=== PATIENT | female | born 1990 | race American Indian/Alaskan Native ===

== ENCOUNTER 2019-11-29 19:11 | Emergency (ER) | payer SELFPAY ==
[2019-11-29 19:41] LABS: Basophils # (Auto) 0.1 K/mm3 (0.0-0.1); Basophils % (Auto) 0.6 % (0.0-1.8); Eosinophils # (Auto) 0.2 K/mm3 (0.0-0.4); Eosinophils % (Auto) 2.8 % (0.0-4.3); Hematocrit 31.8 % (30.3-42.9); Hemoglobin 10.7 gm/dl (10.1-14.3); Lymphocytes % (Auto) 35.3 % (13.4-35.0); Mean Corpuscular HGB Conc 34 % (30-34); Mean Corpuscular Volume 76 fl (79-97); Monocytes # (Auto) 0.5 K/mm3 (0.0-0.8); Monocytes % (Auto) 5.5 % (0.0-7.3); Platelet Count 225 K/mm3 (140-440)
--- NOTE | 2019-11-29 20:39 | Ultrasound Report ---
Limited OB Ultrasound HISTORY: abdominal pain. TECHNIQUE: Grayscale and color imaging performed. COMPARISON: None FINDINGS: Uterus measures 10.8 x 5.9 x 5.3 cm with an intrauterine cystic structure identified measur ing 1.8 cm in maximal dimension which could represent an EGA of 6 weeks and 5 days, but no pole or yolk sac is identified. Neither ovary is identified as exam. IMPRESSION: Intrauterine cystic structure as outlined above with no pole or yolk sac. This coul d represent an early gestational sac but correlate with beta hCG level and consider serial follow-up ultrasound. Signer Name: Greyson Ag MD Signed: 11/29/2019 8:34 PM Workstation Name: [id number]
[2019-11-29 21:32] LABS: Bacteria,Urine 1+ /HPF (Negative); Bilirubin,Urine NEG (Negative); Blood,Urine SM (Negative); Color,Urine Yellow (Yellow); Mucus,Urine FEW /HPF; Protein,Urine <15 mg/dL mg/dL (Negative)
[2019-11-29 21:36] VITALS: BP 106/59
--- NOTE | 2019-11-29 22:09 | Emergency Department Report ---
ED HPI - General Chief complaint: Abdominal Pain Stated complaint: /ABD PAIN Time Seen by Provider: 11/29/19 21:18 Source: patient Mode of arrival: Ambulatory Limitations: No Limitations - History of Present Illness Initial comments: 29-year-old female currently 5 weeks and 5 days with LMP October 19 presents to the hospital complaining of intermittent abdominal pain x1 week. Feels like a tightness in the left lower abdomen radiating across. Pain is moderate in intensity and worse with palpation. No alleviating factors. Patient states she has had decreased bowel movements. She also endorses occasional nausea without vomiting. She is not currently on vitamins. She has not initiated care. She denies dysuria or vaginal bleeding. This is her fourth and she has 3 living children - Related Data Allergies Allergy/AdvReac Type Severity Reaction Status Date / Time No Known Allergies Allergy Unverified 11/29/19 19:21 ED Review of Systems ROS: Stated complaint: /ABD PAIN Other details as noted in HPI Comment: All other systems reviewed and negative ED Past Medical Hx - Past Medical History Previous Medical History?: Yes Hx Asthma: Yes - Surgical History Past Surgical History?: Yes Additional Surgical History: X 3 - Social History Smoking Status: Never Smoker Substance Use Type: None ED Physical Exam - General Limitations: No Limitations - Other Other exam information: General: No acute distress Head: Atraumatic Eyes: normal appearance ENT: Moist mucous membranes Neck: Normal appearance, no midline tenderness Chest: Clear to auscultation bilaterally CV: Regular rate and rhythm Abdomen: Soft, normal bowel sounds, left lower quadrant tenderness, nondistended, no rebound or guarding Back: Normal inspection Extremity: Normal inspection, full range of motion Neuro: Alert O x 3, no facial asymmetry, speech clear, no gross motor sensory deficit Psych: Appropriate behavior Skin: No rash ED Course Vital Signs 11/29/19 11/29/19 19:17 21:35 Temperature 98.6 F 98.6 F Pulse Rate 91 H 70 Respiratory 18 18 Rate Blood Pressure 130/65 Blood Pressure 106/59 [Left] O2 Sat by Pulse 97 99 Oximetry ED Medical Decision Making - Lab Data Result diagrams: 11/29/19 19:22 Lab Results 11/29/19 11/29/19 11/29/19 Range/Units 19:22 19:22 Unknown WBC 8.5 (4.5-11.0) K/mm3 RBC 4.20 (3.65-5.03) M/mm3 Hgb 10.7 (10.1-14.3) gm/dl Hct 31.8 (30.3-42.9) % MCV 76 L (79-97) fl MCH 26 L (28-32) pg MCHC 34 (30-34) % RDW 18.0 H (13.2-15.2) % Plt Count 225 (140-440) K/mm3 Lymph % (Auto) 35.3 H (13.4-35.0) % [place] % (Auto) 5.5 (0.0-7.3) % Eos % (Auto) 2.8 (0.0-4.3) % Baso % (Auto) 0.6 (0.0-1.8) % Lymph # 3.0 (1.2-5.4) K/mm3 [place]ois # 0.5 (0.0-0.8) K/mm3 Eos # 0.2 (0.0-0.4) K/mm3 Baso # 0.1 (0.0-0.1) K/mm3 Seg Neutrophils % 55.8 (40.0-70.0) % Seg Neutrophils # 4.7 (1.8-7.7) K/mm3 HCG, Quant 85317 H (0-4) mIU/mL Urine Color Yellow (Yellow) Urine Turbidity Clear (Clear) Urine pH 6.0 (5.0-7.0) Ur Specific [place] 1.021 (1.003-1.030) Urine Protein <15 mg/dl (Negative) mg/dL Urine Glucose (UA) Neg (Negative) mg/dL Urine Ketones Neg (Negative) mg/dL Urine Blood Sm (Negative) Urine Nitrite Neg (Negative) Urine Bilirubin Neg (Negative) Urine Urobilinogen 2.0 (<2.0) mg/dL Ur Leukocyte Esterase Neg (Negative) Urine WBC (Auto) 1.0 (0.0-6.0) /HPF Urine RBC (Auto) 2.0 (0.0-6.0) /HPF U Epithel Cells (Auto) 2.0 (0-13.0) /HPF Urine Bacteria (Auto) 1+ (Negative) /HPF Urine Mucus Few /HPF - Radiology Data Radiology results: report reviewed Limited OB Ultrasound HISTORY: abdominal pain. TECHNIQUE: Grayscale and color imaging performed. COMPARISON: None FINDINGS: Uterus measures 10.8 x 5.9 x 5.3 cm with an intrauterine cystic structure identified measuring 1.8 cm in maximal dimension which could represent an EGA of 6 weeks and 5 days, but no pole or yolk sac is identified. Neither ovary is identified as exam. IMPRESSION: Intrauterine cystic structure as outlined above with no pole or yolk sac. This could represent an early gestational sac but correlate with beta hCG level and consider serial follow-up ultrasound. ULTRASOUND OBSTETRIC INDICATION / CLINICAL INFORMATION: abd pain, . TECHNIQUE: Transvaginal. COMPARISON: None available. FINDINGS: GESTATIONAL SAC: Well-defined oval shape and intrauterine in location. YOLK SAC: No significant abnormality. EMBRYO/FETUS: No significant abnormality. - [place]-Rump Length = 0.4 cm = 5 weeks, 5 day(s). - Heart Rate, beats per minute (if present) = 120 ADNEXA: No significant abnormality. FREE FLUID: None. ADDITIONAL FINDINGS: None. IMPRESSION: 1. Single, living intrauterine with estimated sonographic age of 5 weeks, 5 day(s). - Medical Decision Making Patient with nonspecific abdominal pain to her endorses less frequent bowel movements. Transvaginal ultrasound confirms viable IUP with heart corresponding to 5 weeks and 5 days. At this time patient does not appear to have an acute surgical infectious cause of abdominal pain. 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 ED Disposition Clinical Impression: Abdominal pain, 5 weeks gestation of , Constipation Disposition: DC-01 TO HOME OR SELFCARE Is pt being admited?: No Does the pt Need Aspirin: No Condition: Stable Instructions: (ED), Constipation (ED) Additional Instructions: Increase your fiber and vegetable intake to help make your bowel movements more regular. Start vitamins but please note most vitamins contain iron which will increase constipation and might worsen abdominal pain. Follow- up with your AIRPLANE DISPATCH CLERK doctor for further evaluation. Return if symptoms worsen as indicated by your discharge instructions Your ultrasound today shows that you are 5 weeks and 5 days . You have been provided a copy of your ultrasound report to take to your AIRPLANE DISPATCH CLERK doctor You may take [id number] Tylenol as needed for pain Jennifer may also help with nausea and stomach upset. Referrals: your, radiology assistant [Other] - 3-5 Days Time of Disposition: 23:23
--- NOTE | 2019-11-29 23:13 | Ultrasound Report ---
ULTRASOUND OBSTETRIC INDICATION / CLINICAL INFORMATION: abd pain, . TECHNIQUE: Transvaginal. COMPARISON: None available. FINDINGS: GESTATIONAL SAC: Well-defined oval shape and intrauterine in location. YOLK SAC: No significant abnormality. EMBRYO/FETUS: No significant abnormality. - [place]-Rump Length = 0.4 cm = 5 weeks, 5 day(s). - Heart Rate, beats per minute (if present) = 120 ADNEXA: No significant abnormality. FREE FLUID: None. ADDITIONAL FINDINGS: None. IMPRESSION: 1. Single, living intrauterine with estimated sonographic age of 5 weeks, 5 day(s). Signer Name: Yefri Romero MD Signed: 11/29/2019 11:09 PM Workstation Name: [id number]
== END 2019-11-29 23:45 | disposition home or self-care (01) ==
LOC: ED 19:11
DX: O99.611 Diseases of the digestive system complicating pregnancy, first trimester (principal); O26.891 Other specified pregnancy related conditions, first trimester; O99.511 Diseases of the respiratory system complicating pregnancy, first trimester; K59.00 Constipation, unspecified; R10.9 Unspecified abdominal pain; J45.909 Unspecified asthma, uncomplicated; Z3A.01 Less than 8 weeks gestation of pregnancy; Z98.890 Other specified postprocedural states
CPT/HCPCS: 36415; 76802; 76817; 81001; 84702; 85025

== ENCOUNTER 2020-02-03 23:28 | Emergency (ER) | payer MEDICAID ==
[2020-02-03 23:34] VITALS: BP 109/44
== END 2020-02-04 00:45 | disposition left against medical advice (07) ==
LOC: ED 23:28
DX: J45.901 Unspecified asthma with (acute) exacerbation (principal); Z53.21 Procedure and treatment not carried out due to patient leaving prior to being seen by health care provider

== ENCOUNTER 2020-05-16 02:43 | Emergency (ER) | payer MEDICAID ==
[2020-05-16] MEDS ORDERED: ALBUTEROL 2.5 MG/3 ML NEBU IH ONE (03:33)
[2020-05-16] MEDS ORDERED: IPRATROPIUM 0.02% NEBU 2.5 ML IH ONE (03:33)
--- NOTE | 2020-05-16 03:37 | Emergency Department Report ---
ED General Adult HPI - General Chief complaint: Adult Asthma Stated complaint: ASTHMA Time Seen by Provider: 05/16/20 03:13 Source: patient Mode of arrival: Ambulatory Limitations: No Limitations - History of Present Illness Initial comments: 30-year-old -[place] female patient presents with complaints of wheezing x2 days. She has a history of asthma and is currently 30 weeks . She denies any cough, chest pain, nausea/vomiting/diarrhea, congestion, loss of taste or smell, fever/chills/sweats, or recent sick contacts. She states this feels like her asthma and that her rescue inhaler is not helping. She denies history of intubation - Related Data Previous Rx's Medication Instructions Recorded Last Taken Type Albuterol Sulfate [Proventil Hfa] 2 puff IH Q4H PRN #1 hfa.aer.ad 05/16/20 Unknown Rx Loratadine [Claritin] 10 mg PO QDAY PRN #10 tablet 05/16/20 Unknown Rx Allergies Allergy/AdvReac Type Severity Reaction Status Date / Time No Known Allergies Allergy Unverified 11/29/19 19:21 ED Review of Systems ROS: Stated complaint: ASTHMA Other details as noted in HPI Constitutional: denies: chills, diaphoresis, fever, malaise, weakness ENT: denies: throat pain Respiratory: wheezing. denies: cough, shortness of breath Cardiovascular: denies: chest pain Gastrointestinal: denies: abdominal pain, nausea, vomiting Neurological: denies: headache Hematological/Lymphatic: denies: swollen glands ED Past Medical Hx - Past Medical History Hx Asthma: Yes - Surgical History Additional Surgical History: X 3 - Social History Smoking Status: Never Smoker Substance Use Type: None - Medications Home Medications: Home Medications Medication Instructions Recorded Confirmed Last Taken Type Albuterol Sulfate [Proventil Hfa] 2 puff IH Q4H PRN #1 hfa.aer.ad 05/16/20 Unknown Rx Loratadine [Claritin] 10 mg PO QDAY PRN #10 tablet 05/16/20 Unknown Rx ED Physical Exam - General Limitations: No Limitations General appearance: alert, in no apparent distress - Head Head exam: Present: atraumatic, normocephalic - Eye Eye exam: Present: normal appearance. Absent: scleral icterus - ENT ENT exam: Present: normal exam - Respiratory Respiratory exam: Present: wheezes (Diffuse). Absent: respiratory distress, rales, rhonchi, accessory muscle use - Cardiovascular Cardiovascular Exam: Present: regular rate, normal rhythm - Neurological Exam Neurological exam: Present: alert, oriented X3 - Psychiatric Psychiatric exam: Present: normal affect, normal mood - Skin Skin exam: Present: warm, dry, intact, normal color. Absent: rash ED Course Vital Signs 05/16/20 05/16/20 05/16/20 02:56 02:58 05:43 Temperature 98.1 F 98.1 F Pulse Rate 85 Pulse Rate [ Bilateral Throughout] Respiratory 17 18 Rate Respiratory Rate [Bilateral Throughout] Blood Pressure 116/46 Blood Pressure [Left] O2 Sat by Pulse 98 Oximetry 05/16/20 05/16/20 05:45 06:36 Temperature Pulse Rate 83 Pulse Rate [ 90 Bilateral Throughout] Respiratory 18 Rate Respiratory 18 Rate [Bilateral Throughout] Blood Pressure Blood Pressure 140/68 [Left] O2 Sat by Pulse 100 Oximetry ED Medical Decision Making - Medical Decision Making 30-year-old -[place] female patient presents with complaints of wheezing x2 days. She has a history of asthma and is currently 30 weeks . She denies any cough, chest pain, nausea/vomiting/diarrhea, congestion, loss of taste or smell, fever/chills/sweats, or recent sick contacts. She states this feels like her asthma and that her rescue inhaler is not helping. She denies history of intubation Patient given hour-long neb treatment. She states that she is feeling a great deal better. Wheezing improved on recheck of lungs. She is well-appearing, her vitals are normal, she is stable for discharge home. Strict return precautions were discussed in detail with patient who verbalizes understanding. Patient to follow-up with her primary care physician. Prescription for Claritin given. Critical care attestation.: If time is entered above; I have spent that time in minutes in the direct care of this critically ill patient, excluding procedure time. ED Disposition Clinical Impression: Asthma exacerbation Qualifiers: Asthma severity: mild Asthma persistence: intermittent Qualified Code(s): J45.21 - Mild intermittent asthma with (acute) exacerbation Disposition: DC-01 TO HOME OR SELFCARE Is pt being admited?: No Condition: Stable Instructions: Asthma, Adult Prescriptions: Loratadine [Claritin] 10 mg PO QDAY PRN #10 tablet PRN Reason: Wheezing Albuterol Sulfate [Proventil Hfa] 2 puff IH Q4H PRN #1 hfa.aer.ad PRN Reason: Wheezing Referrals: PRIMARY CARE, [Primary Care Provider] - 3-5 Days
[2020-05-16 05:45] VITALS: BP 140/68
== END 2020-05-16 05:45 | disposition home or self-care (01) ==
LOC: ED 02:43
DX: J45.901 Unspecified asthma with (acute) exacerbation (principal); Z79.899 Other long term (current) drug therapy; Z98.890 Other specified postprocedural states
CPT/HCPCS: 94644

== ENCOUNTER 2021-04-19 07:46 | Emergency (ER) | payer MEDICAID ==
[2021-04-19] MEDS ORDERED: methylPREDNISolone Sod Succinate 125 MG/2 ML INJ IV ONE (08:44)
[2021-04-19] MEDS ORDERED: ALBUTEROL 2.5 MG/3 ML NEBU IH ONE (08:44)
[2021-04-19] MEDS ORDERED: IPRATROPIUM 0.02% NEBU 2.5 ML IH ONE (08:44)
--- NOTE | 2021-04-19 08:45 | Emergency Department Report ---
ED Shortness of Breath HPI - General Chief Complaint: Dyspnea/Respdistress Stated Complaint: SHORTNESS OF BREATH Time Seen by Provider: 04/19/21 07:53 Source: patient Mode of arrival: Ambulatory Limitations: No Limitations - Related Data Previous Rx's Medication Instructions Recorded Last Taken Type ALBUTEROL NEB's [Proventil 0.083% 2.5 mg IH TID PRN #1 box 04/19/21 Unknown Rx NEBS] Albuterol Mdi (or & Nicu Only) 2 puff IH QID PRN #1 inhalation 04/19/21 Unknown Rx [ProAir HFA Inhaler] Cetirizine HCl [ZyrTEC] 10 mg PO DAILY #30 capsule 04/19/21 Unknown Rx predniSONE [Deltasone] 20 mg PO DAILY #5 tablet 04/19/21 Unknown Rx Allergies Allergy/AdvReac Type Severity Reaction Status Date / Time No Known Allergies Allergy Unverified 11/29/19 19:21 ED Review of Systems ROS: Stated complaint: SHORTNESS OF BREATH Other details as noted in HPI Comment: All other systems reviewed and negative ED Past Medical Hx - Past Medical History Previous Medical History?: Yes Hx Asthma: Yes - Surgical History Past Surgical History?: Yes Additional Surgical History: X 3 - Family History Family history: no significant - Social History Smoking Status: Never Smoker Substance Use Type: None - Medications Home Medications: Home Medications Medication Instructions Recorded Confirmed Last Taken Type ALBUTEROL NEB's [Proventil 0.083% 2.5 mg IH TID PRN #1 box 04/19/21 Unknown Rx NEBS] Albuterol Mdi (or & Nicu Only) 2 puff IH QID PRN #1 inhalation 04/19/21 Unknown Rx [ProAir HFA Inhaler] Cetirizine HCl [ZyrTEC] 10 mg PO DAILY #30 capsule 04/19/21 Unknown Rx predniSONE [Deltasone] 20 mg PO DAILY #5 tablet 04/19/21 Unknown Rx ED Physical Exam - General Limitations: No Limitations General appearance: alert, in no apparent distress - Head Head exam: Present: atraumatic, normocephalic - Eye Eye exam: Present: normal appearance - ENT ENT exam: Present: mucous membranes moist - Neck Neck exam: Present: normal inspection - Respiratory Respiratory exam: Present: wheezes. Absent: respiratory distress - Cardiovascular Cardiovascular Exam: Present: regular rate, normal rhythm. Absent: systolic murmur, diastolic murmur, rubs, gallop - GI/Abdominal GI/Abdominal exam: Present: soft, normal bowel sounds - Extremities Exam Extremities exam: Present: normal inspection - Back Exam Back exam: Present: normal inspection - Neurological Exam Neurological exam: Present: alert, oriented X3 - Psychiatric Psychiatric exam: Present: normal affect, normal mood - Skin Skin exam: Present: warm, dry, intact, normal color. Absent: rash ED Course Vital Signs 04/19/21 07:49 Temperature 98.3 F Pulse Rate 91 H Respiratory 16 Rate Blood Pressure 113/50 O2 Sat by Pulse 99 Oximetry ED Medical Decision Making - Radiology Data Radiology results: report reviewed, image reviewed Critical care attestation.: If time is entered above; I have spent that time in minutes in the direct care of this critically ill patient, excluding procedure time. ED Disposition Clinical Impression: Asthma with acute exacerbation Disposition: 01 HOME / SELF CARE / HOMELESS Is pt being admited?: No Does the pt Need Aspirin: No Condition: Stable Instructions: Asthma, Adult Additional Instructions: MEDS DISCUSSED STAY WELL HYDRATED FOLLOW UP WITH PCP REFERRAL BELOW Referrals: RAMIREZ BRAMBILA MD [Primary Care Provider] - 3-5 Days SYLVIA DA SILVA MD [Staff Physician] - 3-5 Days Time of Disposition: 10:01
[2021-04-19] MEDS ORDERED: methylPREDNISolone Sod Succinate 125 MG/2 ML INJ IM ONE (08:50)
[2021-04-19 10:17] VITALS: BP 129/50
--- NOTE | 2021-04-19 10:34 | XRay Report ---
CHEST 2 VIEWS INDICATION / CLINICAL INFORMATION: Dyspnea. COMPARISON: None available. FINDINGS: SUPPORT DEVICES: None. HEART / MEDIASTINUM: No significant abnormality. LUNGS / PLEURA: No significant pulmonary or pleural abnormality. No pneumothorax. ADDITIONAL FINDINGS: No significant additional findings. IMPRESSION: 1. No acute findings. Signer Name: Jefry Roca MD Signed: 04/19/2021 10:30 AM Workstation Name: [id number]
== END 2021-04-19 10:18 | disposition home or self-care (01) ==
LOC: ED 07:46
DX: J45.901 Unspecified asthma with (acute) exacerbation (principal); Z79.899 Other long term (current) drug therapy; Z98.890 Other specified postprocedural states
CPT/HCPCS: 71046; 94640; 96372; 99283; J2930

== ENCOUNTER 2021-10-29 16:30 | Emergency (ER) | payer MEDICAID ==
[2021-10-29] MEDS ORDERED: ALBUTEROL 2.5 MG/3 ML NEBU IH ONE (16:37)
[2021-10-29] MEDS ORDERED: IPRATROPIUM 0.02% NEBU 2.5 ML IH ONE (16:37)
[2021-10-29] MEDS ORDERED: methylPREDNISolone Sod Succinate 125 MG/2 ML INJ IM ONE (16:56)
[2021-10-29] MEDS ORDERED: ACETAMINOPHEN W/CODEINE 300-30 MG TAB PO ONE (16:56)
[2021-10-29] MEDS ORDERED: BENZONATATE 100 MG CAP PO ONE (16:56)
[2021-10-29] MEDS ORDERED: IPRATROPIUM/ALBUTEROL SULFATE 3 ML AMPUL.NEB IH ONE (17:39)
--- NOTE | 2021-10-29 18:47 | Emergency Department Report ---
ED Asthma HPI - General Chief Complaint: Adult Asthma Stated Complaint: SOB/COUGH/HEADACHE Time Seen by Provider: 10/29/21 16:56 Source: patient Mode of arrival: Ambulatory Limitations: No Limitations - History of Present Illness Initial Comments: 31-year-old black female presents to the emergency department for evaluation of shortness of breath, wheezing, cough, and headache for the past several days. She states that she has been using her inhaler without improvement. MD Complaint: "asthma attack", shortness of breath, wheezing -: Gradual, days(s) (2-3) Severity: moderate Associated Symptoms: dry cough. denies: chest pain Treatments Prior to Arrival: inhaled bronchodilator - Related Data Previous Rx's Medication Instructions Recorded Last Taken Type ALBUTEROL NEB's [Proventil 0.083% 2.5 mg IH TID PRN #1 box 04/19/21 Unknown Rx NEBS] Albuterol Mdi (or & Nicu Only) 2 puff IH QID PRN #1 inhalation 04/19/21 Unknown Rx [ProAir HFA Inhaler] Cetirizine HCl [ZyrTEC] 10 mg PO DAILY #30 capsule 04/19/21 Unknown Rx predniSONE [Deltasone] 20 mg PO DAILY #5 tablet 04/19/21 Unknown Rx Albuterol Sulfate [Proair 90 mcg IH Q6HR PRN #1 inh 10/29/21 Unknown Rx Digihaler] Benzonatate [Tessalon Perles] 100 mg PO Q8HR PRN #30 cap 10/29/21 Unknown Rx guaiFENesin/CODEINE [Robitussin AC] 10 ml PO TID PRN #120 ml 10/29/21 Unknown Rx predniSONE [Deltasone] 50 mg PO QDAY #5 tab 10/29/21 Unknown Rx Allergies Allergy/AdvReac Type Severity Reaction Status Date / Time No Known Allergies Allergy Unverified 11/29/19 19:21 ED Review of Systems ROS: Stated complaint: SOB/COUGH/HEADACHE Other details as noted in HPI Comment: All other systems reviewed and negative Constitutional: denies: chills, fever Respiratory: shortness of breath, wheezing Cardiovascular: denies: chest pain, palpitations Gastrointestinal: denies: abdominal pain, nausea, vomiting Musculoskeletal: denies: back pain Neurological: headache ED Past Medical Hx - Past Medical History Hx Asthma: Yes - Surgical History Past Surgical History?: No Additional Surgical History: X 3 - Social History Smoking Status: Never Smoker Substance Use Type: None - Medications Home Medications: Home Medications Medication Instructions Recorded Confirmed Last Taken Type ALBUTEROL NEB's [Proventil 0.083% 2.5 mg IH TID PRN #1 box 04/19/21 Unknown Rx NEBS] Albuterol Mdi (or & Nicu Only) 2 puff IH QID PRN #1 inhalation 04/19/21 Unknown Rx [ProAir HFA Inhaler] Cetirizine HCl [ZyrTEC] 10 mg PO DAILY #30 capsule 04/19/21 Unknown Rx predniSONE [Deltasone] 20 mg PO DAILY #5 tablet 04/19/21 Unknown Rx Albuterol Sulfate [Proair 90 mcg IH Q6HR PRN #1 inh 10/29/21 Unknown Rx Digihaler] Benzonatate [Tessalon Perles] 100 mg PO Q8HR PRN #30 cap 10/29/21 Unknown Rx guaiFENesin/CODEINE [Robitussin AC] 10 ml PO TID PRN #120 ml 10/29/21 Unknown Rx predniSONE [Deltasone] 50 mg PO QDAY #5 tab 10/29/21 Unknown Rx ED Physical Exam - General Limitations: No Limitations General appearance: alert, in no apparent distress - Head Head exam: Present: atraumatic, normocephalic - Eye Eye exam: Present: normal appearance. Absent: conjunctival injection - Neck Neck exam: Present: normal inspection, full ROM. Absent: tenderness, lymphadenopathy - Respiratory Respiratory exam: Present: respiratory distress, wheezes. Absent: rales, rhonchi, stridor, chest wall tenderness, accessory muscle use - Cardiovascular Cardiovascular Exam: Present: regular rate, normal heart sounds - GI/Abdominal GI/Abdominal exam: Present: soft, normal bowel sounds. Absent: distended, tenderness, guarding, rebound, rigid - Extremities Exam Extremities exam: Present: normal inspection, full ROM, normal capillary refill. Absent: pedal edema, joint swelling, calf tenderness - Back Exam Back exam: Present: normal inspection. Absent: CVA tenderness (R), CVA tenderness (L) - Neurological Exam Neurological exam: Present: alert, oriented X3, normal gait - Psychiatric Psychiatric exam: Present: normal affect, normal mood - Skin Skin exam: Present: warm, dry, intact, normal color ED Course Vital Signs 10/29/21 10/29/21 10/29/21 16:42 16:49 19:02 Temperature 98.5 F 96.8 F L 98.7 F Pulse Rate 65 106 H 98 H Respiratory 18 14 18 Rate Blood Pressure 135/66 118/70 180/98 [Left] O2 Sat by Pulse 99 100 100 Oximetry - Reevaluation(s) Reevaluation #1: 10/29/21 18:34 Wheezing resolved, shortness of breath resolved, and patient states that she feels much better. ED Medical Decision Making - Medical Decision Making 31-year-old black female presents to the emergency department for evaluation of shortness of breath, wheezing, cough, and headache for the past several days. She states that she has been using her inhaler without improvement Symptoms improved after DuoNeb treatments and medications. Patient be discharged home with refill of albuterol inhaler, prednisone, Tessalon Perles, and Robitussin-AC. She is advised to take medications as prescribed and follow- up with her primary care provider or pulmonology for further evaluation and management. She is advised to return to the emergency department as needed. She verbalizes understanding of and agreement with plan of care. Critical care attestation.: If time is entered above; I have spent that time in minutes in the direct care of this critically ill patient, excluding procedure time. ED Disposition Clinical Impression: Asthma Qualifiers: Asthma severity: moderate Asthma persistence: persistent Asthma complication type: uncomplicated Qualified Code(s): J45.40 - Moderate persistent asthma, uncomplicated Disposition: 01 HOME / SELF CARE / HOMELESS Is pt being admited?: No Does the pt Need Aspirin: No Condition: Stable Instructions: Asthma, Adult, [id number], Asthma Attack Prevention, Adult, Asthma (ED) Additional Instructions: Take medications as prescribed. 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 Return to the emergency department as needed. Prescriptions: predniSONE [Deltasone] 50 mg PO QDAY #5 tab Albuterol Sulfate [Proair Digihaler] 90 mcg IH Q6HR PRN #1 inh PRN Reason: Wheezing guaiFENesin/CODEINE [Robitussin AC] 10 ml PO TID PRN #120 ml PRN Reason: Cough Benzonatate [Tessalon Perles] 100 mg PO Q8HR PRN #30 cap PRN Reason: Cough Referrals: SYLVIA DA SILVA MD [Staff Physician] - 3-5 Days CHRIS MORRELL MD [Staff Physician] - 3-5 Days Forms: Work/School Release Form(ED) Time of Disposition: 18:47
[2021-10-29 19:03] VITALS: BP 180/98
== END 2021-10-29 21:28 | disposition home or self-care (01) ==
LOC: ED 16:30
DX: J45.909 Unspecified asthma, uncomplicated (principal)
CPT/HCPCS: 94640; 96372; 99282; J2930